=== PATIENT | male | born 1965 | race Caucasian/White ===

== ENCOUNTER → 2016-08-08 | Outpatient (CLI) | payer MEDICARE ==
[~2016-08-08] MED LIST: BENADRYL25 M1 PO; IBUPROFEN800 MG PO; LORCET 5-325 M1 EACH PO; NO MEDICATIONS
--- NOTE | ~2016-08-08 | CR172 ---
[facility] A Service of [facility] RADIOLOGY TEXT RESULTS PATIENT: JENNIFFER GALLEGOS LOCATION: [facility] : 61 UNIT #: [id number] AGE: [address]: ANDIE MURPHY SEX: M ORDER DR: [id number] [facility] [address] [place], [place] [address] [id number] O MR#: [id number] Acc #: [id number] NAME: JENNIFFER GALLEGOS. : 1965 SEX: M STUDY DATE/TIME: 08/08/2016 13:59 UNIT: [facility] ROOM: STUDY DESCRIPTION: CR Knee 3 Views Lt Attending Physician: Meena Leos Referring Physician: Meena Leos Ordering Physician: Meena Leos Primary Care Physician: Tiffani Giles M.D. MEDICAL IMAGING REPORT This report is preliminary unless electronic signature is present EXAM Left knee. INDICATION Left knee pain for years since 1989. The patient has had previous surgery with le in tibia. FINDINGS AP, lateral and sunrise views of the left knee were obtained. There is a metal le in the mid-tibia. There is minimal spurring from the patella laterally. The joint spaces are normal. IMPRESSION 1. Postoperative changes in the tibia. 2. Minimal lateral spurring from the patella. 3. Otherwise, normal. Dictated by... Emmett Pena M.D. THIS IS AN ELECTRONICALLY VERIFIED REPORT Emmett Pena M.D. at 08/09/2016 7:15 AM SARITA/vidal TD: 08/08/2016 18:09 JOB #: [id number] MEDICAL IMAGING REPORT Page 1 of 1 COPY
--- NOTE | ~2016-08-08 | CR252 ---
[facility] A Service of [facility] & [facility] RADIOLOGY TEXT RESULTS PATIENT: JENNIFFER GALLEGOS LOCATION: [facility] : 61 UNIT #: [id number] AGE: [address]: ANDIE MURPHY SEX: M ORDER DR: [id number] [facility] [address] [place], [place] [address] [id number] O MR#: [id number] Acc #: [id number] NAME: JENNIFFER GALLEGOS : 1965 SEX: M STUDY DATE/TIME: 08/08/2016 14:00 UNIT: [facility] ROOM: STUDY DESCRIPTION: CR Tibia and Fibula 2 Views Lt Attending Physician: Meena Leos Referring Physician: Meena Leos Ordering Physician: Meena Leos Primary Care Physician: Tiffani Giles M.D. MEDICAL IMAGING REPORT This report is preliminary unless electronic signature is present EXAM Left tibia and fibula 2 views 08/08/2016 HISTORY Left lower extremity pain since 1989. No recent injury. FINDINGS 2 views of the left tibia and fibula demonstrate intramedullary le traversing old healed fracture through the mid portion of the left tibial diaphysis. There is an old healed fracture involving the proximal left fibular diaphysis. The bones are normally mineralized. Note is made that the proximal end of the intramedullary le extends anteriorly from the bone cortex by approximately 8 mm. Clinical correlation is recommended. Dictated by... Ga Blevins M.D. THIS IS AN ELECTRONICALLY VERIFIED REPORT Ga Blevins M.D. at 08/10/2016 7:46 AM GREGORIA/skip TD: 08/09/2016 13:24 JOB #: [id number] MEDICAL IMAGING REPORT Page 1 of 1 COPY
--- NOTE | ~2016-08-08 | CR230 ---
[facility] A Service of [facility] RADIOLOGY TEXT RESULTS PATIENT: JENNIFFER GALLEGOS LOCATION: [facility] : 61 UNIT #: [id number] AGE: [address]: ANDIE MURPHY SEX: M ORDER DR: [id number] [address] [place], [place] [address] [id number] O MR#: [id number] Acc #: [id number] NAME: JENNIFFER GALLEGOS. : 1965 SEX: M STUDY DATE/TIME: 08/08/2016 13:59 UNIT: [facility] ROOM: STUDY DESCRIPTION: CR Shoulder Min 2 View Rt Attending Physician: Meena Leos Referring Physician: Meena Leos Ordering Physician: Meena Leos Primary Care Physician: Tiffani Giles M.D. MEDICAL IMAGING REPORT This report is preliminary unless electronic signature is present EXAM Right shoulder, 3 views. DATE OF EXAM 08/08/2016 HISTORY Right shoulder pain since 1994. No known injury. FINDINGS 3 views of the right shoulder demonstrate no fracture. There is degenerative change with some narrowing of the glenohumeral joint and there is subchondral cyst formation involving the right humeral head. Minimal osteophytic spurring along the medial aspect of the humeral head and the inferior aspect of the glenoid. There is separation of the right acromioclavicular joint with elevation of the distal right clavicle relative to the acromion by 1 shaft width. IMPRESSION 1. Degenerative change involving the right glenohumeral joint. No evidence of fracture. 2. Separation of the right acromioclavicular joint. Dictated by... Ga Blevins M.D. THIS IS AN ELECTRONICALLY VERIFIED REPORT Ga Blevins M.D. at 08/09/2016 8:03 AM GREGORIA/vidal TD: 08/08/2016 21:05 JOB #: [id number] [facility] A Service of [facility] RADIOLOGY TEXT RESULTS PATIENT: JENNIFFER GALLEGOS LOCATION: [facility] #: [id number] : 61 UNIT #: [id number] AGE: [address]: ANDIE MURPHY SEX: M ORDER DR: MEDICAL IMAGING REPORT Page 1 of 1 COPY
== END | disposition home or self-care (01) ==
LOC: CRAD 12:38
DX: M25.561 Pain in right knee (principal); M25.511 Pain in right shoulder; M79.662 Pain in left lower leg; S43.101A Unspecified dislocation of right acromioclavicular joint, initial encounter; Z98.890 Other specified postprocedural states
CPT/HCPCS: 73030; 73562; 73590

== ENCOUNTER → 2016-08-11 | Outpatient (CLI) | payer MEDICARE ==
--- NOTE | ~2016-08-11 | CR181 ---
[facility] A Service of [facility] & [facility] RADIOLOGY TEXT RESULTS PATIENT: JENNIFFER GALLEGOS LOCATION: [facility] : 61 UNIT #: [id number] AGE: [address]: Generic Doctor NOT IN SYSTEM SEX: M ORDER DR: [id number] [facility] [address] [place], [place] [address] [id number] O MR#: [id number] Acc #: [id number] NAME: JENNIFFER GALLEGOS : 1965 SEX: M STUDY DATE/TIME: 08/11/2016 13:54 UNIT: [facility] ROOM: STUDY DESCRIPTION: CR Lumbar Spine 2 or 3 Views Attending Physician: Generic Doctor Not In System Referring Physician: Generic Doctor Not In System Ordering Physician: Helen Rosen Primary Care Physician: Tiffani Giles M.D. MEDICAL IMAGING REPORT This report is preliminary unless electronic signature is present EXAM Lumbar spine 3 views 08/11/2016 HISTORY Low back pain, degenerative disc disease. Pain since 1989. FINDINGS 3 lateral views of the lumbar spine were obtained in the neutral position as well as in flexion and extension. There is no anterolisthesis or retrolisthesis. There is no evidence of lumbar spine fracture. The disc spaces are normally maintained. Dictated by... Ga Blevins M.D. THIS IS AN ELECTRONICALLY VERIFIED REPORT Ga Blevins M.D. at 08/15/2016 9:19 AM GREGORIA/faina TD: 08/11/2016 21:32 JOB #: [id number] MEDICAL IMAGING REPORT Page 1 of 1 COPY
--- NOTE | ~2016-08-11 | CR58 ---
[facility] A Service of [facility] & [facility] RADIOLOGY TEXT RESULTS PATIENT: JENNIFFER GALLEGOS LOCATION: [facility] : 61 UNIT #: [id number] AGE: [address]: Generic Doctor NOT IN SYSTEM SEX: M ORDER DR: [id number] [facility] [address] [place], [place] [address] [id number] O MR#: [id number] Acc #: [id number] NAME: JENNIFFER GALLEGOS : 1965 SEX: M STUDY DATE/TIME: 08/11/2016 13:49 UNIT: [facility] ROOM: STUDY DESCRIPTION: CR Cervical Spine 2 or 3 Views Attending Physician: Generic Doctor Not In System Referring Physician: Generic Doctor Not In System Ordering Physician: Helen Rosen Primary Care Physician: Tiffani Giles M.D. MEDICAL IMAGING REPORT This report is preliminary unless electronic signature is present EXAM Cervical spine, 3 views, with lateral, neutral, flexion, and extension views. COMPARISON None HISTORY Neck pain since 1989. FINDINGS There is a mild loss of lordosis, and mild discogenic change, but there is no abnormal motion in flexion or extension. There is no fracture or prevertebral swelling or other acute abnormality. Dictated by... Gen Perea M.D. THIS IS AN ELECTRONICALLY VERIFIED REPORT Gen Perea M.D. at 08/16/2016 1:25 PM KENDRICK/rai TD: 08/11/2016 18:37 JOB #: [id number] MEDICAL IMAGING REPORT Page 1 of 1 COPY
== END | disposition home or self-care (01) ==
LOC: CRAD 13:06
DX: M50.30 Other cervical disc degeneration, unspecified cervical region (principal); M51.36 Other intervertebral disc degeneration, lumbar region; M79.662 Pain in left lower leg
CPT/HCPCS: 72040; 72100

== ENCOUNTER → 2016-09-04 | Outpatient (CLI) | payer MEDICARE ==
--- NOTE | ~2016-09-04 | CR63 ---
[facility] A Service of [facility] RADIOLOGY TEXT RESULTS PATIENT: JENNIFFER GALLEGOS LOCATION: [facility] : 61 UNIT #: [id number] AGE: [address]: Mary Aguirre APRN SEX: M ORDER DR: [id number] [facility] [address] [place], [place] [address] [id number] O MR#: [id number] Acc #: [id number] NAME: JENNIFFER GALLEGOS. : 1965 SEX: M STUDY DATE/TIME: 09/04/2016 10:36 UNIT: [facility] ROOM: STUDY DESCRIPTION: CR Chest 2 View Attending Physician: Mary Aguirre Aprn Referring Physician: Mary Aguirre Aprn Ordering Physician: Mary Aguirre Aprn Primary Care Physician: Tiffani Giles M.D. MEDICAL IMAGING REPORT This report is preliminary unless electronic signature is present EXAM Chest, 09/04/2016, [facility]. HISTORY 51-year-old male patient with a history of chest pain, cough, and congestion x1 week. Nonsmoker. COMPARISON None FINDINGS Two-view chest demonstrates normal heart size. Hilar structures and mediastinal contours are preserved. Bilateral lungs are expanded and clear. Minimal pleural response blunts the left costophrenic angle. This appears to be chronic. IMPRESSION No acute chest finding. Probable pleural thickening only blunting the left costophrenic angle. Dictated by... Nestor Sams M.D. THIS IS AN ELECTRONICALLY VERIFIED REPORT Nestor Sams M.D. at 09/04/2016 2:26 PM NORMA/han TD: 09/04/2016 12:58 JOB #: [id number] MEDICAL IMAGING REPORT [facility] A Service [facility] RADIOLOGY TEXT RESULTS PATIENT: JENNIFFER GALLEGOS LOCATION: [facility] : 61 UNIT #: [id number] AGE: [address]: Mary Aguirre APRN SEX: M ORDER DR: Page 1 of 1 COPY
--- NOTE | ~2016-09-04 | EKG ---
PATIENT: JENNIFFER GALLEGOS UNIT #: [id number] Ventricular Rate: 70 BPM Atrial Rate: 70 BPM P-R Interval: 164 ms QRS Duration: 80 ms Q-T Interval: 368 ms QTC Calculation(Bezet): 397 ms P [place]: 58 degrees Calculated R [place]: 27 degrees Calculated T [place]: 50 degrees Diagnosis Line: Normal sinus rhythm Diagnosis Line: Early repolarization Diagnosis Line: Normal ECG Diagnosis Line: No previous ECGs available Diagnosis Line: Confirmed by [place] MD ([id number]) on Diagnosis Line: 09/04/2016 10:48:25 PM INTERPRETING MD: DEMARCUS
== END | disposition home or self-care (01) ==
LOC: CRAD 10:11
DX: R07.9 Chest pain, unspecified (principal); R05 Cough
CPT/HCPCS: 71020; 93005

== ENCOUNTER → 2016-09-27 | Outpatient (CLI) | payer MEDICARE ==
[2016-09-27 08:26] LABS: HEMATOCRIT 43.3 % (38.0-50.0); HEMOGLOBIN 14.1 gm/dL (13.0-16.0); MEAN CELL VOLUME 88.1 FL (83-96); MEAN CORPUSCULAR HEMOGLOBIN 28.7 PG (28-34); MEAN CORPUSCULAR HGB CONC 32.6 g/dL (30-36); MEAN PLATELET VOLUME 8.3 FL (6.5-11.5); RED BLOOD COUNT 4.91 X10e (3.90-5.60); WHITE BLOOD COUNT 9.5 X10e3 (4.0-10.5)
[2016-09-27 08:30] LABS: URINE APPEARANCE CLEAR; URINE BILIRUBIN NEG (NEG); URINE BLOOD NEG (NEG); URINE COLOR YELLOW; URINE GLUCOSE NEG (NEG); URINE KETONE NEG (NEG); URINE LEUKOCYTE ESTERASE NEG (NEG); URINE NITRATE NEG (NEG); URINE PROTEIN NEG (NEG); URINE SPECIFIC GRAVITY 1.025 (1.003-1.035); URINE UROBILINOGEN 0.2 MG/DL (NEG)
[2016-09-27 08:34] LABS: CULTURE INDICATED? NO
[2016-09-27 08:59] LABS: BUN/CREATININE RATIO 12.72; CALCIUM SERUM 8.8 mg/dL (8.4-10.2); CREATININE SERUM 1.1 mg/dL (0.6-1.4); GLOM FILT RATE Estimated 76.3 mL/min (>60); POTASSIUM 4.4 mmol/L (3.5-5.1)
== END | disposition home or self-care (01) ==
LOC: CAMB 07:20
PROVIDERS: Orthopaedic Surgery
DX: Z01.812 Encounter for preprocedural laboratory examination (principal)
CPT/HCPCS: 36415; 80048; 81003; 85027

== ENCOUNTER → 2016-10-02 | Day surgery (SDC) | payer MEDICARE ==
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
== END | disposition home or self-care (01) ==
LOC: CSUR 09:22
DX: T84.84XA Pain due to internal orthopedic prosthetic devices, implants and grafts, initial encounter (principal); G89.29 Other chronic pain; H91.90 Unspecified hearing loss, unspecified ear; Z88.0 Allergy status to penicillin; Z91.041 Radiographic dye allergy status; Z98.890 Other specified postprocedural states; Z79.891 Long term (current) use of opiate analgesic; Z79.899 Other long term (current) drug therapy
CPT/HCPCS: 76000; J1100; J1170; J2250; J2405; J3010; J3370